=== PATIENT | male | born 1960 | race Caucasian/White ===

== ENCOUNTER 2021-09-13 09:19 | Emergency (ER) | payer SELFPAY ==
[2021-09-13 09:20] VITALS: BP 137/97; PULSE 100; RESP 16; TEMP 36.2; O2SAT 98; BMI 27.1
--- NOTE | 2021-09-13 09:34 | EX.ED.DYSGE1 ---
HPI <KALEY Haas - Last Filed: 09/13/21 10:19> History of Present Illness Chief Complaint: Lower Extremity Injury Narrative Narrative: 60-year-old male with no significant medical history who currently does not have a physician presents the emergency department with 3 days of left knee pain. Patient states he was walking in his house, went to turn a light switch, felt something in his left knee, continue to have pain and swelling. Today, the patient is here for evaluation, he does stand all day at work and is having pain. Patient does have swelling to the inside part of his any recent trips, any history of DVTs, PEs. PFSH <KALEY Haas - Last Filed: 09/13/21 10:19> [facility] Medical History no medical history Home Medications naproxen [Naprosyn] 500 mg PO BID PRN #20 tab 09/13/21 [Rx Last Taken Unknown] Allergy/AdvReac Type Severity Reaction Status Date / Time No Known Allergies Allergy Verified 09/13/21 09:22 Surgical History no surgical history Social History Smoking Status: Never smoker ROS <KALEY Haas - Last Filed: 09/13/21 10:19> ROS ED ROS Narrative Constitutional: Negative for fever, chills, weight loss, weakness Eyes: Negative for vision loss, vision change, double vision ENT: Negative for any sore throat, ear pain, congestion Cardiovascular: Negative for any chest pain, tightness, palpitations, racing heartbeat Respiratory: Negative for any cough, sputum production, hemoptysis, shortness of breath, shortness of breath on exertion, orthopnea Gastrointestinal: Negative for any abdominal pain, nausea, vomiting, diarrhea, constipation, blood in stool, blood in vomit : Negative for any urinary frequency, incontinence, dysuria, retention, blood in urine Muscle skeletal: Negative for any muscle joint pain, stiffness, myalgias, arthralgias, neck pain, back pain. Positive for left knee pain, left knee swelling Neurological: Negative for any headache, dizziness, syncope, numbness or tingling Skin: Negative for any rashes, lumps, itching, abrasions, lacerations Psychiatric: Negative for any depression, anxiety, stress, suicidal ideation, homicidal ideation Hematologic: Negative for any easy bruising, excessive bruising, easy bleeding Allergies: Negative for any eczema, hives, rash EXAM <KALEY Haas - Last Filed: 09/13/21 10:19> Physical Exam Narrative Exam Narrative: Vital signs reviewed. Extremities: Patient's left knee has an intact extensor mechanism, patient has pain with flexion. Patient does have some edema to the medial aspect of the knee to the patella. Patella is stable. The knee joint appears to be structurally intact. Negative for any neurological focal deficit. Patient is able to stand and bear weight. Neuro: Cranial nerves II through XII intact, no focal neurological deficits. Skin: Clean dry and intact with no rash, purpura, petechiae, vesicles or pustules. Backslash flank: No CVA tenderness, no midline spinal tenderness, no deformity. Psych: Normal mood and affect. No SI, HI or acute psychosis. Const Vital Signs: 09/13/21 09:20 Temperature 97.2 F L Temperature Source Temporal Pulse Rate 100 Respiratory Rate 16 Blood Pressure 137/97 H Blood Pressure Mean 110 Pulse Ox 98 Oxygen Delivery Method Room Air Positive well nourished and well developed General Appearance ED: well developed <Dr. Constantino Tom MD - Last Filed: 09/13/21 10:28> Physical Exam Const Vital Signs: 09/13/21 09:20 Temperature 97.2 F L Temperature Source Temporal Pulse Rate 100 Respiratory Rate 16 Blood Pressure 137/97 H Blood Pressure Mean 110 Pulse Ox 98 Oxygen Delivery Method Room Air MDM <KALEY Haas - Last Filed: 09/13/21 10:19> [facility] MDM Narrative Medical decision making narrative: Patient appears well, patient appears nontoxic, vital signs are stable. Patient presents to the emergency department with left knee pain has been ongoing for the last 3 days after a injury when he was turning too fast to turn off a light switch. Patient's physical examination is consistent with a knee sprain, however internal derangement cannot be excluded. Patient did receive x-rays, the patient's x-rays were unremarkable, the knee joint appears intact. Patient will be given an Mateusz wrap, anti-inflammatories as well as crutches for comfort. He will follow-up with orthopedics for further follow-up. He is instructed to return for any worsening symptoms. Patient stable for discharge Radiography Diagnostic Testing: Clinical Impression(s) from Imaging Studies Knee X-Ray 09/13/21 09:38 IMPRESSION: Joint effusion. Electronically Signed: Sj Mckeon MD at 10:10 EDT , <Dr. Constantino Tom MD - Last Filed: 09/13/21 10:28> [facility] MDM Narrative Medical decision making narrative: Seen and evaluated independently and in conjunction with physician visitor information assistant. Agree with notes above unless documented otherwise. Patient had a twisting injury to the left knee several days ago. Able to walk on it, hurts worse to walk and bend. Exam: Possible minor effusion left knee. No bony tenderness. All ligaments stable, with short endpoints and 0 pain on stressing. X-rays 4 views on my interpretation are normal. Radiology added that there appears to be a small effusion. Discussed the possibility of a meniscus injury/internal derangement and orthopedic follow-up which she was given. Rest and NSAIDs until that he does not require crutches to get around. Given an Mateusz wrap. Radiography Diagnostic Testing: Clinical Impression(s) from Imaging Studies Knee X-Ray 09/13/21 09:38 IMPRESSION: Joint effusion. Electronically Signed: Sj Mckeon MD at 10:10 EDT , Discharge Plan Triage Chief Complaint: Lower Extremity Injury ED Midlevel Provider: Braden Temple ED Provider: Constantino Tom Dx/Rx/DC Orders Clinical Impression: Knee sprain, Acute joint effusion Instructions: ED Knee Sprain Prescriptions: New naproxen [Naprosyn] 500 mg tablet 500 mg PO BID PRN (Reason: pain) Qty: 20 RF: 0 Stand Alone Forms: ED Work / School Excuse Primary Care Provider: Care Physician,No Primary Referrals: Javan Arevalo DO [STAFF PHYSICIAN] - 3-5 Days if not improving Activity Restrictions/Additional Instructions: You are being diagnosed with a knee sprain, use Mateusz wrap, crutches for comfort. You may use the anti-inflammatories, it is twice a day, and you can work while on the medication. You need to follow-up with orthopedics for further evaluation of the swelling of your right knee. Print Language: [place] Disposition Disposition: Home, Self Care Discharge Date/Time: 09/13/21 10:27
--- NOTE | 2021-09-13 09:38 | RAD_ITS ---
STUDY: X-RAY - LEFT KNEE REASON FOR EXAM: Male, 60 years old. Knee pain TECHNIQUE: 4 view(s) of the knee. COMPARISON: None. FINDINGS: Normal visualized distal femur. Normal visualized proximal tibia and fibula. Normal proximal tibiofibular articulation. Normal medial femorotibial compartment. Normal lateral femorotibial compartment. Normal patellofemoral articulation. Joint effusion. RAD/Knee 4 or More Views IMPRESSION: Joint effusion. Electronically Signed: Sj Mckeon MD at 10:10 EDT ,
== END 2021-09-13 10:27 | disposition home or self-care (01) ==
LOC: ED 10:23
PROVIDERS: Emergency Provider Emergency Medicine; Visit Provider Emergency Medicine
DX: S83.92XA Sprain of unspecified site of left knee, initial encounter (principal); M25.462 Effusion, left knee; X58.XXXA Exposure to other specified factors, initial encounter
CPT/HCPCS: 73564; 99282

== ENCOUNTER 2023-05-15 13:17 | Emergency (ER) | payer SELFPAY ==
[2023-05-15 13:18] VITALS: BP 160/110; PULSE 120; RESP 18; TEMP 36.5; O2SAT 94; BMI 31.8
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
[2023-05-15] MEDS: Diphth,Pertuss(Acell),Tet Vac 0.5 ML Vial IM (14:25)
[2023-05-15 14:27] LABS: Carboxyhemoglobin Frac (CO) 5.5 % (0.0-1.5)
== END 2023-05-15 16:05 | disposition home or self-care (01) ==
PROVIDERS: Emergency Provider Emergency Medicine; Visit Provider Emergency Medicine
DX: T20.26XA Burn of second degree of forehead and cheek, initial encounter (principal); R03.0 Elevated blood-pressure reading, without diagnosis of hypertension; R00.0 Tachycardia, unspecified; X00.1XXA Exposure to smoke in uncontrolled fire in building or structure, initial encounter
CPT/HCPCS: 82375; 90715; 99284; A4216